=== PATIENT | male | born 1965 | race Caucasian/White ===

== ENCOUNTER 2024-09-06 08:58 | Day surgery (SDC) | payer BC ==
[2024-09-06] MEDS: Lactated Ringers 1,000 ML IV SCH (09:21)
[2024-09-06] MEDS ORDERED: fentaNYL 50 MCG/ML SDV ONE (09:30)
[2024-09-06] MEDS ORDERED: Midazolam 1 MG/ML 2 ML SDV ONE (09:30)
[2024-09-06] MEDS ORDERED: Propofol 200 MG/20 ML SDV ONE ×2 (09:30)
[2024-09-06] MEDS ORDERED: Ketamine 200 MG/20 ML MDV ONE (09:30)
[2024-09-06 10:52] VITALS: BP 115/77; PULSE 81
== END 2024-09-06 10:54 | disposition home or self-care (01) ==
LOC: CC.SDS 08:58
PROVIDERS: ATTEND Family Medicine
DX: D12.2 Benign neoplasm of ascending colon (principal); D12.0 Benign neoplasm of cecum; D12.4 Benign neoplasm of descending colon; K63.5 Polyp of colon; I10 Essential (primary) hypertension; R63.4 Abnormal weight loss; Z68.23 Body mass index [BMI] 23.0-23.9, adult
CPT/HCPCS: 00811; J2250; J2704; J3010; J3490; J7120